=== PATIENT | male | born 1950 | race Caucasian/White ===

== ENCOUNTER 2016-12-27 01:05 | Emergency (ER) | payer MEDICARE, BC ==
[~2016-12-27] VITALS: Ht 167.6 cm; Wt 112.8 kg
--- OUTSIDE RECORDS SUMMARY | 2016-12-27 01:09 | XMS REPORT | Continuity of Care Document ---
Author Author [facility] Organization [facility] Address Unknown Phone Unavailable Allergies Medications Problems Procedures Results Encounters ACCT No. Visit Date/Time Discharge Status Pt. Type Provider Facility Loc./Unit Complaint [id number] 07/25/2014 15:58:43 07/25/2014 23: 59:59 [facility] Outpatient Nael Boyd [id number] 06/10/2013 11:22:00 06/10/2013 23: 59:59 [facility] Outpatient Hina Vigil [id number] 12/27/2012 17:19:57 12/27/2012 23: 59:59 [facility] Outpatient Nael Boyd
[2016-12-27 01:11] VITALS: Ht 167.6 cm; Wt 112.8 kg
[2016-12-27] MEDS ORDERED: NORMAL SALINE 1,000 ML IV ONE (01:34)
[2016-12-27] MEDS ORDERED: NO ROUTINE MEDS (01:35)
--- NOTE | 2016-12-27 01:40 | ERPDOC ---
Departure Disposition Decision Date: December 27, 2016 Disposition Decision Time: 04:05 Disposition: 02 [facility], OTHER Impression Impression Impression: Primary Impression: Peritonsillar abscess Severity: Severe Condition: Improved Seen By: Physician only Referrals: [facility] Problems/Meds/Labs Reviewed?: Yes Medications reviewed and manag: Yes Follow up care ordered?: Yes Mental Status: Alert HPI - Dyspnea General Chief Complaint: Dyspnea/Respdistress Stated Complaint: SHORTNESS OF BREATH Time Seen by Provider: 01:34 Source: patient, family Exam Limitations: no limitations HPI - Dyspnea Initial Comments 66yo man presents to the ER tonight with HOANG. Pt has had 8-9 months of progressive HOANG, subjective chills, and fatigue. Pt is from [place]; has not seen his doctor for this. Tonight, pt ate Swedish food with his and son. When they returned home, his sx were as bad as they have ever been. and son 'forced' pt to present to the ER tonight for evaluation. Additionally, pt c/o right jaw pain, that improves with ibuprofen. Occurred At: home Onset/Timing: Gradual, Getting worse Duration: other Pain/Severity Scale: Now & Worst: 7/10 Severity: severe Activities at Onset: activity Prior Episodes/Possible Cause: frequent episodes Modifying Factors: IMPROVES WITH: lying down, rest, WORSE WITH: activity Associated Symptoms: diaphoresis, fever/chills, shortness of breath, weakness Aspirin Treatment Today: contraindicated Hx of Similar Symptoms: Yes Allergies: Coded Allergies: No Known Allergies (Unverified , 12/27/16) Past History Past Medical History Pt denies signifigant PMH Review of Systems Constitutional Constitutional: chills, fatigue, weakness Cardiovascular Cardiac: dyspnea on exertion, orthopnea General: frequency Endocrine Endocrine: heat/cold intolerance, polydipsia All other Systems All Other Systems: Reviewed and Negative Physical Exam General General Nourishment: well nourished, well developed, appears stated age, no acute distress, adult, obese General Body Habitus: well groomed Vitals and Pain First Documented Vital Signs Date Time Temp Pulse Resp B/P Pulse Ox O2 Delivery O2 Flow Rate FiO2 12/27/16 01:11 100.3 82 20 159/79 95 Room Air Weight: Kilograms: Height (feet): Height (inches): Triage Pain Scale: RN VS reviewed by Provider: Yes Eyes (brief) Eyes Brief: found: EOMI, PERRL, not found: scleral icterus ENMT (brief) ENMT Brief: FOUND: TM clear, TM good light reflex, ear canals clear, mucosa moist, NOT FOUND: normal tonsils Comments Right tonsilar pillar is enlarged and extends into mouth. Right soft palate does not elevate. Neck (brief) Neck: FOUND: trachea midline, NOT FOUND: JVD, adenopathy, thyromegaly Neck Neck: NOT FOUND: JVD, adenopathy, thyroid tenderness, tracheal deviation Respiratory (brief) Respiratory: FOUND: clear all manley, equal bilaterally, symmetrical, NOT FOUND : rales, wheezes Cardiovascular (brief) Cardiac: FOUND: regular rate, regular rhythm, NOT FOUND: click, gallop, murmur , pedal edema, peripheral edema, rub Capillary Refill: <2 sec Pulses: all distal extremities, equal, strong Abdomen (brief) Abdominal Brief: FOUND: bowel normo active x4, soft, NOT FOUND: distended, hepatosplenomegaly, pulsatile mass, tender Lymphatic (brief) Lymphatic Brief: NOT FOUND: adenopathy, lymphedema Musculoskeletal (brief) Musculoskeletal Brief: NOT FOUND: deformity, loss of motion, spasm, tenderness Integumentary (brief) Integumentary Brief: FOUND: pink, warm Comments 3+ pitting edema b/l. Neurologic (brief) Neurological Brief: FOUND: CN w/o gross def to obs, DTR 2/4 all extremities, gait w/o gross def to obs, motor-no gross deficits, sensory-no gross deficits, NOT FOUND: Babinski Psychiatric (brief) Psychiatric Brief: FOUND: alert, normal affect, oriented Differential Diagnoses Considering: Peritonsillar Abscess, Retropharyngeal Abscess, Acute NH, Acute Respiratory Failure, CHF, Alexis's Angina, Pneumonia, Pneumothorax, Pulmonary Edema, Sinusitis, Viral Syndrome Progress Results/Orders Orders Procedure Category Date Status Time Cbc W/Auto LAB 12/27/16 Complete Diff-Reflex Manual 01:34 Cmp - Comprehensive LAB 12/27/16 Complete Metabolic 01:34 Probnp LAB 12/27/16 Complete 01:34 Troponin I W LAB 12/27/16 Complete Hemolysis Index 01:34 INR LAB 12/27/16 Complete 01:34 Ua, Dip Wreflex LAB 12/27/16 Logged [employer] Control Specialist 01:34 D-Dimer LAB 12/27/16 Complete 01:34 Tsh - Thyroid Stim LAB 12/27/16 Complete Hormone 01:34 Magnesium LAB 12/27/16 Complete 01:34 EKG EKG 12/27/16 Taken 01:34 Chest, Pa & Lateral RAD 12/27/16 Taken 01:34 Iv Lock (Ed Only) EDM 12/27/16 Transmitted 01:34 Normal Saline (Normal PHA 12/27/16 In Process Saline Iv) 01:34 Furosemide (Lasix) PHA 12/27/16 Complete 01:45 Ct Maxillofacial W/O CT 12/27/16 Logged Contrast 01:34 Clindamycin 600mg PHA 12/27/16 In Process Ivpb (Cleocin 600 Mg I 03:45 Lab Results Laboratory Tests Test 12/27/16 02:05 White Blood Count 10.1T/MM3 Red Blood Count 4.86M/MM3 Hemoglobin 15.2GM/DL Hematocrit 44.9% Mean Corpuscular Volume 92.4UM3 Mean Corpuscular Hemoglobin 31.3UUG Mean Corpuscular Hemoglobin Concent 33.9GM/DL RDW Standard Deviation 44.4FL Platelet Count 173T/MM3 Mean Platelet Volume 12.7UM3 Immature Granulocyte % (Auto) 0.3% Neutrophils (%) (Auto) 66.6% Lymphocytes (%) (Auto) 16.2% Monocytes (%) (Auto) 15.3% Eosinophils (%) (Auto) 1.4% Basophils (%) (Auto) 0.2% Absolute Immature Granulocyte (auto 0.03T/MM3 Absolute Neutrophils (auto) 6.7T/MM3 Absolute Lymphocytes (auto) 1.6T/MM3 Absolute Monocytes (auto) 1.6T/MM3 Absolute Eosinophils (auto) 0.1T/MM3 Absolute Basophils (auto) 0.0T/MM3 Prothromb Time International Ratio 1.10 D-Dimer 192NG/ML Turbidity < 20 Sodium Level 145MEQ/L Potassium Level 5.8MEQ/L Chloride Level 102MEQ/L Carbon Dioxide Level 29MEQ/L Anion Gap 14MEQ/L Blood Urea Nitrogen 15.0MG/DL Creatinine 0.6MG/DL Glomerular Filtration Rate Calc 135 BUN/Creatinine Ratio 25RATIO Glucose Level 126MG/DL Calculated Osmolality 282MOSM/KG Calcium Level 9.4MG/DL Magnesium Level 2.0MG/DL Total Bilirubin 1.40MG/DL Icterus Index < 2 Aspartate Amino Transf (AST/SGOT) 61U/L Alanine Aminotransferase (ALT/SGPT) 55U/L Alkaline Phosphatase 42U/L Troponin I < 0.012ng/ml PK-Ibf-I-Type Natriuretic Peptide 251PG/ML Total Protein 7.9G/DL Albumin 4.7G/DL Globulin 3.2G/DL Albumin/Globulin Ratio 1.5RATIO Thyroid Stimulating Hormone (TSH) 1.34MIU/L Chemistry Specimen Hemolysis 230 Medications Current ED Medications Sodium Chloride (Normal Saline IV) 1,000 ml @ 75 mls/hr [id number] ONCE IV Last administered on 12/27/16t 02:08; Start 12/27/16 at 01:34; Stop 12/27/16 at 14:53 Furosemide 40 mg 40 mg O ONCE IV ; Start 12/27/16 at 01:45; Stop 12/27/16 at 01 :46; Status DC Clindamycin HCl/ Dextrose (CLEOCIN 600 mg in D5W 50 mL) 50 ml @ 100 mls/hr O ONCE IV ; Start 12/27/16 at 03:45; Stop 12/27/16 at 04:14 Progress Progress Got results of CT maxillofacial back at 0332; briefly left to handle a critical pt, then discussed txfr options with pt. Pt wants to be transferred to [place], where he lives. Contacted Dr. Berman, [facility] for txfr of pt for definitive treatment. Pt does want EMS transport. EKG EKG : Rate: 60-100 Rhythm: sinus Rowlett: normal QRS: normal Intervals: normal ST/T: non-specific changes Subtle Signs LAE Interpreted by: signing physician Consult/PCP Consult/PCP : Physician Contacted: [facility] Time Called: 03:50 Time of first response: 03:55 Type of discussion: Admit Discussion/PCP Discussion Details Will accept pt for txfr and further eval/treatment. Xray Xray : Xray: CXR PA/Lat Interpretation: Normal, Interpreted by Me CT CT : CT: Other (Maxillofacial) Interpretation: Abnormal (Peritonsillar abscess with inferior extension), Reviewed Written Report KRYSTINA BISHOP DO December 27, 2016 01:40
[2016-12-27] MEDS ORDERED: FUROSEMIDE 100 MG/10 ML INJECTION IV ONE (01:45)
--- NOTE | 2016-12-27 01:48 | NUR ---
EKG EKG OBTAINED
--- NOTE | 2016-12-27 02:05 | NUR ---
IVL IVL STARTED IN THE LEFT HAND WITH #[id number], FIRST ATTEMPT BLOOD OBTAINED FOR LAB PT ARLINE WELL
--- NOTE | 2016-12-27 02:08 | NUR ---
IV FLUID #1 IV 1000CC NS STARTED AT 75CC/HR ORDERED IV SITE WITHOUT REDNESS OR SWELLING
[2016-12-27 02:10] LABS: BASOPHILS % (AUTO) 0.2 % (0-2); EOSINOPHILS # (AUTO) 0.1 T/MM3 (0-0.5); EOSINOPHILS % (AUTO) 1.4 % (0-4); HCT - HEMATOCRIT 44.9 % (41-53); HGB - HEMOGLOBIN 15.2 GM/DL (13.5-17.5); IMMATURE GRANULOCYTE # (AUTO) 0.03 T/MM3 (0.00-0.03); IMMATURE GRANULOCYTE % (AUTO) 0.3 % (0.0-0.5); LYMPHOCYTES # (AUTO) 1.6 T/MM3 (1-4.8); LYMPHOCYTES % (AUTO) 16.2 % (23-45); MEAN CORPUSCULAR HGB 31.3 UUG (26-34); MEAN CORPUSCULAR HGB CONC(MCHC 33.9 GM/DL (31-37); MEAN CORPUSCULAR VOLUME 92.4 UM3 (80-100); MEAN PLATELET VOLUME 12.7 UM3 (9.4-12.4); MONOCYTES # (AUTO) 1.6 T/MM3 (0-0.8); MONOCYTES % (AUTO) 15.3 % (0-9.0); NEUTROPHILS #(AUTO)-ABSOLUTE 6.7 T/MM3 (1.8-7.7); NEUTROPHILS % (AUTO) 66.6 % (33-66); RED BLOOD COUNT 4.86 M/MM3 (4.50-5.90); WBC - WHITE BLOOD COUNT 10.1 T/MM3 (4.5-11.0)
[2016-12-27 02:16] LABS: INR 1.1 (0.77-1.03); PROTHROMBIN TIME 12.1 SEC (9.48-12.52)
[2016-12-27 02:19] LABS: ALBUMIN 4.7 G/DL (3.5-5.0); ALBUMIN/GLOBULIN RATIO 1.5 RATIO (1.1-2.2); ALKALINE PHOSPHATASE 42 U/L (38-126); ALT (SGPT) 55 U/L (21-72); ANION GAP 14 MEQ/L (5-15); AST (SGOT) 61 U/L (17-59); BUN/CREATININE RATIO 25 RATIO (6-26); CALCIUM 9.4 MG/DL (8.4-10.2); CHLORIDE 102 MEQ/L (98-107); CO2 - CARBON DIOXIDE 29 MEQ/L (22-30); CREATININE 0.6 MG/DL (0.8-1.5); GLOMERULAR FILTRATION RATE 135; GLUCOSE 126 MG/DL (75-110); POTASSIUM 5.8 MEQ/L (3.6-5); SODIUM 145 MEQ/L (134-144); TOTAL PROTEIN 7.9 G/DL (6.3-8.2)
--- NOTE | 2016-12-27 02:20 | NUR ---
RADIOLOGY PT TAKEN TO RADIOLOGY FOR ORDERED TESTS
[2016-12-27 02:33] LABS: PROBNP 251 PG/ML (0-175)
--- NOTE | 2016-12-27 02:35 | NUR ---
ROOM PT RETURNED TO ROOM 6 PER CART FROM RADIOLOGY FAMILY REMAINS AT BEDSIDE
--- OUTSIDE RECORDS SUMMARY | 2016-12-27 02:43 | XMS REPORT | Continuity of Care Document ---
Author Author [facility] Organization [facility] Address Unknown Phone Unavailable Allergies Medications Problems Procedures Results Encounters ACCT No. Visit Date/Time Discharge Status Pt. Type Provider Facility Loc./Unit Complaint [id number] 07/25/2014 15:58:43 07/25/2014 23: 59:59 [facility] Outpatient Nael Boyd [id number] 06/10/2013 11:22:00 06/10/2013 23: 59:59 [facility] Outpatient Hina Vigil [id number] 12/27/2012 17:19:57 12/27/2012 23: 59:59 [facility] Outpatient Nael Boyd
--- NOTE | 2016-12-27 02:45 | NUR ---
MED LAB NOTED BY DR DARIO AWAD LASIX ORDER
[2016-12-27 02:50] LABS: THYROID STIM HORMONE-TSH 1.34 MIU/L (0.47-4.68)
[2016-12-27] MEDS ORDERED: CLINDAMYCIN 600mg IVPB 50 ML IV ONE (03:45)
--- NOTE | 2016-12-27 03:53 | NUR ---
MED CLINDAMYCIN STARTED AT 100CC/HR IVPB TO MAINLINE IV IV SITE WITHOUT REDNESS OR SWELLING
--- NOTE | 2016-12-27 04:34 | NUR ---
REPORT REPORT CALLED TO ANGIE ROCHA AT [facility]
--- NOTE | 2016-12-27 04:42 | NUR ---
911 DISPATCH CALLED FOR TRANSPORT TO [facility]
[2016-12-27 04:59] VITALS: BP 128/73; PULSE 72; RESP 18; TEMP 100.3; O2SAT 93
--- NOTE | 2016-12-27 04:59 | NUR ---
TRANSFER PT TRANSFERED TO [facility] ED BY [facility]
--- NOTE | 2016-12-28 11:53 | DI ---
INDICATION: ITS.REASON: Dyspnea PROCEDURE: CHEST 2-VIEWS UPRIGHT (PA \T\ LAT) Encounter: Initial COMPARISON: None FINDINGS: The lungs are clear without evidence of focal abnormal airspace opacity. There is no pleural effusion or pneumothorax. The heart size, mediastinal contours and pulmonary vascularity are within normal limits. There is no significant skeletal abnormality. IMPRESSION: No acute cardiopulmonary disease. .
--- NOTE | 2016-12-28 11:57 | DI ---
Indication: ITS.REASON: Right tonsillar pillar swelling; no soft palate elevation on righ PROCEDURE: CT MAXILLOFACIAL W/O CONTRAST: Encounter: Initial Comparison: None Technique: Axial noncontrast CT images through the mid face were performed with coronal and sagittal two-dimensional reformats. Automated Exposure Control and Iterative Reconstruction dose reducing techniques were utilized. Findings: No acute maxillofacial fracture identified. Paranasal sinuses are clear. There is asymmetric soft tissue thickening in the right palatine seen tonsillar area. There is a small 1 cm area of fluid or focal edema within the tonsil. The parotid and submandibular glands appear normal and symmetric. Evaluation is somewhat limited without IV contrast. The right tonsillar process causes slight leftward deviation of the hypopharynx with minimal narrowing of the airway. Impression: Right palatine tonsillar thickening could represent acute tonsillitis. Neoplasm cannot be entirely excluded. Recommend further evaluation with contrast-enhanced exam and direct visualization. There is a preliminary report by [employer]. .
== END 2016-12-27 04:59 | disposition short-term general hospital (02) ==
LOC: ED 01:05
DX: J36 Peritonsillar abscess (principal)
CPT/HCPCS: 70486; 71020; 80053; 83735; 83880; 84443; 84484; 85025; 85379; 85610; 93005; 96361; 96365; 99285; J7030